=== PATIENT | male | born 2000 | race Caucasian/White ===

== ENCOUNTER 2018-08-21 16:46 | Emergency (ER) | payer MEDICAID ==
[~2018-08-21] VITALS: Ht 185.4 cm; Wt 86.2 kg
[2018-08-21 16:50] VITALS: BP_SYST 146
== END 2018-08-21 17:20 | disposition home or self-care (01) ==
LOC: SED 16:46
DX: F90.9 Attention-deficit hyperactivity disorder, unspecified type (principal); F41.8 Other specified anxiety disorders; I10 Essential (primary) hypertension
CPT/HCPCS: 99283